=== PATIENT | female | born 1995 | race Caucasian/White ===

== ENCOUNTER 2021-08-09 05:36 | Outpatient (CLI) | payer OTHER ==
[~2021-08-09] VITALS: Ht 155 cm; Wt 48.6 kg
[2021-08-09] MEDS ORDERED: PNV1TABL9 PO (13:19)
== END 2021-08-12 15:51 ==
LOC: PREOP 05:36
PROVIDERS: ATTEND Obstetrics & Gynecology
DX: Z01.818 Encounter for other preprocedural examination (principal)

== ENCOUNTER 2021-08-16 09:26 | Day surgery (SDC) | payer OTHER ==
[~2021-08-16] VITALS: Ht 155 cm; Wt 48.6 kg
[2021-08-16] VITALS (12 sets, daily range): BP systolic 107–128; BP diastolic 69–91
[~2021-08-16 09:26] MED LIST: PNV1TABL9 PO
[2021-08-16] MEDS ORDERED: BUPIVACAINE 0.25% 30 ML (SENSORCAINE) VIAL ONE (09:28)
[2021-08-16] MEDS ORDERED: METHYLENE BLUE 0.5% (PROVAYBLUE) 50 mg/10 ml vial IV ONE (09:28)
[2021-08-16] MEDS ORDERED: ceFAZolin INJECTION 1,000 MG in WATER (STERILE) FOR INJECTION 10 ML IV ONE (09:45)
[2021-08-16] MEDS ORDERED: LACTATED RINGERS 1,000 ML IV PRN (09:45)
--- NOTE | 2021-08-16 09:54 | Progress Note-Pre Operative ---
Pre-Operative Progress Note H&P Reviewed The H&P was reviewed, patient examined and no changes noted. Date Seen by Provider: Aug 16, 2021 Time Seen by Provider: 10:20 Date H&P Reviewed: Aug 16, 2021 Time H&P Reviewed: 10:20 Pre-Operative Diagnosis: Right sided Ovarian complex mass, Pelvic pain ADRIANNA BENÍTEZ DO Aug 16, 2021 09:54
[2021-08-16 10:06] LABS: BASOPHILS % (AUTO) 1 % (0-10); EOSINOPHILS # (AUTO) 0.2 10^3/uL (0.0-0.3); EOSINOPHILS % (AUTO) 2 % (0-10); HEMATOCRIT 40 % (35-52); HEMOGLOBIN 13.9 g/dL (11.5-16.0); LYMPHOCYTES % (AUTO) 23 % (12-44); MEAN CORPUSCULAR HEMOGLOBIN 30 pg (25-34); MEAN CORPUSCULAR HGB CONC 35 g/dL (32-36); MEAN CORPUSCULAR VOLUME 86 fL (80-99); MEAN PLATELET VOLUME 9.9 fL (9.0-12.2); MONOCYTES # (AUTO) 0.8 10^3/uL (0.0-1.0); MONOCYTES % (AUTO) 9 % (0-12); NEUTROPHILS # (AUTO) 5.6 10^3/uL (1.8-7.8); NEUTROPHILS % (AUTO) 65 % (42-75); PLATELET COUNT 202 10^3/uL (130-400); WHITE BLOOD COUNT 8.6 10^3/uL (4.3-11.0)
[2021-08-16] MEDS ORDERED: ONDANSETRON 4 MG/2 ML (SDV) Z0FRAN ONE (11:17)
[2021-08-16] MEDS ORDERED: LIDOCAINE PF 2% 5 ML (XYLOCAINE) VIAL ONE (11:17)
[2021-08-16] MEDS ORDERED: fentaNYL INJ 100 MCG/2 ML AMP ONE (11:17)
[2021-08-16] MEDS ORDERED: proPOfol 200 MG/20 ML (DIPRIVAN) VIAL IV ONE (11:17)
[2021-08-16] MEDS ORDERED: ROCURONIUM 10 MG/ML 5 ML SYRINGE IV ONE (11:17)
[2021-08-16] MEDS ORDERED: MIDAZOLAM 2 MG/2 ML (VERSED) VIAL ONE (11:18)
[2021-08-16] MEDS ORDERED: MEPERIDINE (DEMEROL) INJ 50 MG/ML ONE (12:55)
[2021-08-16] MEDS ORDERED: KETOROLAC 30 MG/ML VIAL IVP ONE (13:00)
[2021-08-16] MEDS ORDERED: D5 LR IV SOLUTION 1,000 ML IV SCH (13:00)
[2021-08-16] MEDS ORDERED: HYDROcodone/APAP 5 MG/325 MG (LORTAB) TAB PO PRN (13:00)
[2021-08-16] MEDS ORDERED: IBUP-1773 PO (13:00)
[2021-08-16] MEDS ORDERED: ONDANSETRON 4 MG/2 ML (SDV) Z0FRAN IVP PRN ×2 (13:00→13:45)
[2021-08-16] MEDS ORDERED: ACHD5005 PO (13:00)
--- NOTE | 2021-08-16 13:02 | Discharge Inst-Women's Service ---
Discharge Inst-Women's Serv Depart Medication/Instructions New, Converted or Re-Newed RX: RX on Chart Problems Reviewed?: Yes Consults/Follow Up Additional Follow Up: Yes Orders/Referrals Dr. Benítez in 7-10 days Activity Activity: Activity as Tolerated Driving Instructions: No Driving for 1 Week NO SMOKING: NO SMOKING Nothing Inside Vagina: No Douching, No [place], No Tampons Diet Discharge Diet: No Restrictions Symptoms to Report to : Bleeding Excessive, Pain Increased, Fever Over 101 Degrees F, Vaginal Bleeding Increase, Questions/Concerns For Any Problems or Questions: Contact Your Physician ADRIANNA BENÍTEZ DO Aug 16, 2021 13:02
[2021-08-16] MEDS ORDERED: MEPERIDINE (DEMEROL) INJ 50 MG/ML IVP ONE ×2 (13:15→13:45)
[2021-08-16] MEDS ORDERED: SEVOFLURANE (ULTANE) 15 ML INHAL SOLN ONE (13:24)
[2021-08-16] MEDS ORDERED: GLYCOPYRROLATE 0.2 MG/ML (ROBINUL) 2 ML VIAL ONE (13:25)
[2021-08-16] MEDS ORDERED: NEOSTIGMINE 3 MG/3 ML VIAL ONE (13:25)
[2021-08-16] MEDS ORDERED: KETOROLAC 30 MG/ML VIAL ONE (13:25)
[2021-08-16] MEDS ORDERED: fentaNYL INJ 100 MCG/2 ML AMP IVP ONE (13:45)
[2021-08-16] MEDS ORDERED: morphine INJ 10 MG/ML 1ML (SYR OR VIAL) IVP ONE (13:45)
--- NOTE | 2021-08-16 13:52 | Anesthesia-General Post-Op ---
General Patient Condition Mental Status/LOC: Same as Preop Cardiovascular: Satisfactory Nausea/Vomiting: Absent Respiratory: Satisfactory Pain: Controlled Complications: Absent Post Op Complications Complications None Follow Up Care/Instructions Patient Instructions None needed. Anesthesia/Patient Condition Patient Condition Patient is doing well, no complaints, stable vital signs, no apparent adverse anesthesia problems. No complications reported per nursing. ABIEL ARORA CRNA Aug 16, 2021 13:52
--- NOTE | 2021-08-16 16:11 | OPERATIVE REPORT ---
DATE OF SERVICE: PREOPERATIVE DIAGNOSES: 1. A 25-year-old female with left complex ovarian cyst. 2. Acute on chronic pelvic pain and dyspareunia. POSTOPERATIVE DIAGNOSES: 1. A 25-year-old female with left complex ovarian cyst. 2. Acute on chronic pelvic pain and dyspareunia. 3. Stage III-IV endometriosis. PROCEDURE: Laparoscopic robotic-assisted evacuation of multiple left ovarian endometriomas, lysis of adhesions taking greater than 45 minutes, mobilization of left ovary and chromotubation. SURGEON: Demond Harman DO SCRAP SORTER: Berenice Conde DNP, who was necessary for manipulation and retraction throughout the procedure. ANESTHESIA: General endotracheal. ESTIMATED BLOOD LOSS: Minimal. URINE OUTPUT: 150 mL clear at the end of the procedure. FLUIDS: 1800 mL lactated Ringer's solution. FINDINGS: A grossly normal appearing right tube and ovary, uterus with a dark hemosiderin laden deposits along the serosal surface of the posterior aspect of the uterus, multiple endometriomas with the left ovary change in the size of the ovary to approximately 4 to 5 cm in diameter. Grossly normal appearing upper abdominal anatomy. SPECIMEN SENT: None. INDICATIONS FOR PROCEDURE: This 25-year-old female patient who is consulted for second opinion due to wanting to preserve her left ovary, being told by other physicians that the removal of the left ovary was the only option to proceed with. She has concerns with her long-term fertility and is wanting to have children with her . Discussed with the patient in detail preoperatively removal of the left ovary was a real possibility; however, we would attempt to preserve the ovary if we were able to risk of laparoscopy was discussed with the patient in detail including risk of bleeding, infection, damage to surrounding structures including, but not limited to bowel, bladder, or kidneys, possible need for reoperation, possible loss of fertility, risk from anesthesia and even . After everything was discussed with the patient in detail and all of her questions were answered and her and her mother present, consent was obtained, the patient was taken to the operating room. OPERATIVE REPORT IN DETAIL: Once in the operating room, general anesthesia was found to be adequate, placed in dorsal lithotomy position, prepped and draped in normal sterile fashion. Timeout was performed. Sutton catheter was placed using sterile technique. A weighted speculum inserted to the patient's vagina. Right angle retractor was used to visualize the cervix. It was grasped at 12 o'clock position using a single tooth tenaculum. I then gently sounded the uterine cavity, depth was found to be 7 cm. I then gently dilated the cervix using Hussein dilators to allow placement of the Kronner uterine manipulator. Once this was in place, I removed all the instruments from the patient's vagina, performed change of gloves obtained my attention to the abdomen where infraumbilically, I infiltrated this area using 0.25% Marcaine. I introduced the Veress needle subcostally at the midclavicular line in the left upper quadrant. Able to confirm intraperitoneal placement using the saline drop test and opening pressure of 2 mmHg was noted, proceeded to max pressure of 15 mmHg using CO2 gas, at which point I making 8 mm incision infraumbilically and placed a da Adelaida camera trocar through this incision. Intraperitoneal placement was confirmed using the da Adelaida laparoscope, I am able to confirm no damage upon entry of the left upper quadrant. Veress needle and it was removed at that point. I then briefly scanned the remainder of the anatomy, which appears grossly normal. Once I had the patient placed in steep Trendelenburg, we had to visualize all my pelvic anatomy as defined in my findings above. I placed two lateral trocars, both 8 mm trocars approximately 8 cm lateral to my infraumbilical trocar. Once both these trocars were in place and bringing the da Adelaida robot and docked in appropriate fashion, placing the SynchroSeal device in the left hand and the monopolar hossein in the left hand. I began by taking down multiple filmy adhesions of the posterior cul-de-sac allowing me to address the ovary. I then tried to pull the ovary away from the pelvic sidewall and liberated from the pelvic sidewall. It ruptures open and a dark substance comes out consistent with an endometrioma. Once this was open, I opened up the cyst wall and cauterized the lining of the cyst wall. I opened up multiple other endometriomas that are lying down the wall of the ovary and these were all cauterized as well and rinsed out. I then am able to pull up the ovarian stroma and liberated and mobilized away from the left pelvic sidewall. This was done with care to stay away from the ureters during my dissection. After this was done, I copiously irrigated the pelvis using normal saline. There was no active bleeding noted from any of my dissection planes. I have to take down a few adhesions of the sigmoid colon that are adhesed to the left pelvic sidewall as well in order to visualize the entire fallopian tube and left ovary. Once this was done, I performed a chromotubation, there is spillage through the distal ampullary portion of bilateral fallopian tubes of the methylene blue dye. This was then irrigated and suctioned out as well. I then wrapped the left ovary and Interceed and undocked the da Adelaida robot and proceeded to remainder of the case laparoscopically. There was no active bleeding noted from any of my dissection planes. At that point, I have the patient taken out of steep Trendelenburg where I removed the lateral trocars under regulation laparoscope and infraumbilical trocars left in place to release insufflation and to introduce 10 mL of 0.25% Marcaine into the peritoneal cavity for postoperative pain management. I then removed this trocar as well. The skin reapproximated using 4-0 Monocryl in interrupted subcuticular stitches. Dermabond was applied to the incisions and Band-Aids were placed over these as well. Sutton catheter was left in place, to be removed in recovery room. Kronner uterine manipulator removed as well. One gram of Ancef given preoperatively for infection prophylaxis. Job ID: [id number] DocumentID: [id number] Dictated Date: 08/16/2021 13:09:11 Wallpaper Hanger Helper Date: 08/16/2021 16:10:22 Dictated By: DEMOND HARMAN DO
== END 2021-08-16 14:50 | disposition home or self-care (01) ==
LOC: SDC 09:26
PROVIDERS: ATTEND Obstetrics & Gynecology
DX: N83.292 Other ovarian cyst, left side (principal); N94.10 Unspecified dyspareunia; G89.29 Other chronic pain; R10.2 Pelvic and perineal pain; N80.9 Endometriosis, unspecified; N94.12 Deep dyspareunia
CPT/HCPCS: 58350; 58662; 84703; 85025; 86850; 86900; 86901; 87081; C1765; 36415

== ENCOUNTER → 2022-03-18 | Outpatient (CLI) | payer OTHER ==
[~2022-03-18] MED LIST changes: +ACHD5005 PO; +IBUP-1773 PO
--- NOTE | 2022-03-18 14:15 | Diagnostic Imaging Report ---
Indication: Palpable lump left breast. Sonographic interrogation the area of lump in the upper outer left breast was performed. This corresponds to the 1-3 o'clock location. No sonographic abnormality is seen. No solid or cystic mass is detected. IMPRESSION: BI-RADS Category 1 No sonographic abnormality is seen at the area of palpable abnormality. Continued close clinical and self breast exams recommended to confirm stability of the area of palpable abnormality. ACR BI-RADS Category 1: Negative. Dictated by: Dictated on workstation # [id number]
== END ==
LOC: RAD 12:45
PROVIDERS: ATTEND Obstetrics & Gynecology
DX: N63.21 Unspecified lump in the left breast, upper outer quadrant (principal)
CPT/HCPCS: 76642